=== PATIENT | female | born 1980 | race Hispanic/Latino ===

== ENCOUNTER 2020-09-01 08:33 | Emergency (ER) | payer MEDICAID, OTHER ==
[2020-09-01] MEDS ORDERED: ONDANSETRON HCL 4 MG/2 ML VIAL ONE (09:03)
[2020-09-01] MEDS ORDERED: KETOROLAC TROMETHAMINE 30MG/ML ONE (09:03)
[2020-09-01] MEDS ORDERED: SODIUM CHLORIDE 0.9% 1000ML 1,000 ML IV ONE (09:03)
[2020-09-01] MEDS ORDERED: DiphenhydrAMINE HCL 50 MG/ML VIAL ONE (09:03)
== END 2020-09-01 10:41 | disposition home or self-care (01) ==
LOC: EDH 08:33
DX: S80.02XA Contusion of left knee, initial encounter (principal); R51.9 Headache, unspecified; V43.52XA Car driver injured in collision with other type car in traffic accident, initial encounter; Y93.89 Activity, other specified; Y92.89 Other specified places as the place of occurrence of the external cause; Y99.8 Other external cause status
CPT/HCPCS: 81025; 96361; 96374; 96375; 99284; J1200; J1885; J2405; J7030

== ENCOUNTER 2022-09-13 19:13 | Emergency (ER) | payer OTHER ==
[~2022-09-13] VITALS: Ht 154.9 cm; Wt 71.7 kg
[2022-09-13 19:15] VITALS: BP 125/73
== END 2022-09-13 22:12 | disposition left against medical advice (07) ==
LOC: EDH 19:13
DX: J02.9 Acute pharyngitis, unspecified (principal); Z53.21 Procedure and treatment not carried out due to patient leaving prior to being seen by health care provider